=== PATIENT | male | born 1985 | race African-American/Black ===

== ENCOUNTER 2019-12-08 08:48 | Emergency (ER) | payer MEDICAID ==
[~2019-12-08] VITALS: Ht 177.8 cm; Wt 80.0 kg
[2019-12-08 09:30] VITALS: BP 144/82
[2019-12-08] MEDS ORDERED: METHOCARBAMOL 500MG TABLET PO ONE (09:30)
[2019-12-08] MEDS ORDERED: KETOROLAC 60MG/2ML VIAL IM ONE (09:30)
== END 2019-12-08 10:23 | disposition home or self-care (01) ==
LOC: ER 08:57
DX: M62.830 Muscle spasm of back (principal)
CPT/HCPCS: 96372; 99283; J1885